=== PATIENT | female | born 2000 | race Two or more races ===

== ENCOUNTER 2024-01-06 23:51 | Emergency (ER) | payer MEDICAID, OTHER ==
[~2024-01-06] VITALS: Ht 162.6 cm; Wt 100.2 kg
[2024-01-07 00:05] VITALS: TEMP 98.6
[2024-01-07 00:09] VITALS: BP 111/76; PULSE 88; RESP 16; O2SAT 100
[2024-01-07] MEDS: LIDOCAINE 1% HCL (LOCAL ANESTH.) INJ 20ML MDV IJ ONE (01:56)
[2024-01-07] MEDS ORDERED: CEPH500C PO (02:15)
== END 2024-01-07 02:22 | disposition home or self-care (01) ==
LOC: ER 23:51
DX: L02.211 Cutaneous abscess of abdominal wall (principal)
CPT/HCPCS: 10060; 99283; J2001